=== PATIENT | female | born 1980 | race Caucasian/White ===

== ENCOUNTER → 2018-03-06 | Outpatient (CLI) | payer BC ==
[~2018-03-06] MED LIST: DOCO100C2 PO; MULT-1335 PO; PREN-127 PO
[2018-03-06 10:31] LABS: PLATELET COUNT, AUTOMATED 275 K/uL (150-450)
== END ==
LOC: LAB 10:08
PROVIDERS: ATTEND Obstetrics & Gynecology
DX: Z34.01 Encounter for supervision of normal first pregnancy, first trimester (principal); R82.79 Other abnormal findings on microbiological examination of urine
CPT/HCPCS: 36415; 81001; 85025; 86592; 86762; 86850; 86900; 86901; 87088; 87340

== ENCOUNTER → 2018-06-06 | Outpatient (CLI) | payer BC ==
--- NOTE | 2018-06-06 15:37 | RADIOLOGY IMAGING REPORT ---
FACILITY: [facility] - [place] PATIENT NAME: Rosette Her : 1980 MR: [id number] V: [id number] EXAM DATE: ORDERING PHYSICIAN: PENELOPE MORENO TECHNOLOGIST: Location: [facility] [place] Patient: Rosette Her : 1980 Visit/Account:[id number] Date of Sevice: 06/06/2018 [facility] OB ANATOMICAL SURVEY Comparisons: None. HISTORY: Anatomic survey, advanced maternal age. FINDINGS: A single living intrauterine is noted in breech presentation with a heart rate of 138 bpm. Placenta is within normal limits and is anterior. MA fluid volume is appropriate with an AVIS of 13.8. anatomy including the intracranial structures, facial structures, spinal structures, sacrum, fo ur-chamber view the heart, outflow tracts, stomach, kidneys, bladder, three-vessel cord and cord inse rtion have a normal appearance. 4 normal-appearing extremities are noted. Cervix is closed. The adnexal regions are unremarkable. Biometry: BPD: 49 mm corresponding to 20 weeks 6 days. Head circumference: 181 mm corresponding to 20 weeks 4 days Abdominal circumference: 163 mm corresponding to 21 weeks 3 days Femur length: 34 mm corresponding to 20 weeks 5 days Estimated weight: 390 g IMPRESSION: 1. Living single intrauterine at 21 weeks 0 days. 2. Unremarkable survey. Report Dictated By: Bladimir Cronin MD at 06/06/2018 3:29 PM Report E-Signed By: Bladimir Cronin MD at 06/06/2018 3:33 PM WSN:LINDA
== END ==
LOC: RAD 08:07
PROVIDERS: ATTEND Obstetrics & Gynecology
DX: Z02.9 Encounter for administrative examinations, unspecified (principal)

== ENCOUNTER → 2018-06-18 | Outpatient (CLI) | payer BC | LOC: LAB 15:20 | PROVIDERS: ATTEND Student in an Organized Health Care Education/Training Program | DX: Z02.9 Encounter for administrative examinations, unspecified (principal) ==

== ENCOUNTER → 2018-07-30 | Outpatient (CLI) | payer BC ==
[~2018-07-30] MED LIST changes: +DIPH0.5D12 IM; +FLU60VIA41 IM
[2018-07-30 16:53] LABS: PLATELET COUNT, AUTOMATED 264 K/uL (150-450)
== END ==
LOC: LAB 16:14
PROVIDERS: ATTEND Obstetrics & Gynecology
DX: O09.523 Supervision of elderly multigravida, third trimester (principal)
CPT/HCPCS: 36415; 82950; 85025

== ENCOUNTER 2018-10-19 02:45 | Inpatient (IN) | payer BC ==
[~2018-10-19] VITALS: Ht 162.6 cm; Wt 74.4 kg
[2018-10-19] MEDS ORDERED: FAMOTIDINE(*) 20MG/50ML PREMIX 50 ML IVPB PRN (02:47)
[2018-10-19] MEDS ORDERED: ceFAZolin(*) 2GM/D5W 50ML 50 ML IVPB PRN (02:47)
[2018-10-19] MEDS ORDERED: OXYTOCIN 30 UNIT/D5LR 500 ML 500 ML IV PRN (02:47)
[2018-10-19] MEDS ORDERED: fentaNYL CITR 100 MCG/2 ML AMP IVP PRN (02:50)
[2018-10-19] MEDS ORDERED: LIDOCAINE 1% LOCAL 300 MG/30ML INJ PRN (02:50)
[2018-10-19] MEDS ORDERED: LIDOCAINE/SOD BICARB 8.4% SYR SC PRN (02:50)
[2018-10-19] MEDS ORDERED: FLUSH 10 ML SYR IVP PRN (02:50)
[2018-10-19] MEDS ORDERED: METOCLOPRAMIDE 10 MG/2 ML SDV IVP PRN (02:50)
[2018-10-19 03:10] VITALS: BP 144/80
[2018-10-19] MEDS: LR(*) 1000 ML BAG 1,000 ML IV SCH ×3 (03:30→05:40)
[2018-10-19] MEDS ORDERED: FAMOTIDINE 20 MG/50 ML PREMIX IVPB ONE (03:35)
[2018-10-19] MEDS ORDERED: FENTANYL/ROPIVACAINE 100 ML BAG EPI PRN (03:35)
[2018-10-19] MEDS ORDERED: SCOPOLAMINE 1.5 MG PATCH TOP PRN (03:35)
[2018-10-19] MEDS ORDERED: BUPIVACAINE 0.5% INJ 30ML VIAL EPI PRN (03:35)
[2018-10-19] MEDS ORDERED: LIDOCAINE/PF 2% 200MG/10ML AMP 200 MG/10 ML AMPUL EPI PRN (03:35)
[2018-10-19] MEDS ORDERED: LIDO/EPI 2% MPF 1:200,000 20ML EPI PRN (03:35)
[2018-10-19] MEDS ORDERED: ONDANSETRON 4 MG/2 ML VIAL IVP PRN (03:35)
[2018-10-19] MEDS ORDERED: BUPIVACAINE 0.25% MPF INJ EPI PRN (03:35)
[2018-10-19] MEDS ORDERED: METOCLOPRAMIDE 10 MG/2 ML SDV IV PRN (03:35)
[2018-10-19] MEDS ORDERED: diphenhydrAMINE 50 MG/ML VIAL IV PRN (03:35)
[2018-10-19] MEDS ORDERED: fentaNYL CITR 100 MCG/2 ML AMP IT PRN (03:35)
[2018-10-19] MEDS ORDERED: EPIDURAL KEYS XX PRN (03:38)
[2018-10-19 03:49] LABS: PLATELET COUNT, AUTOMATED 200 K/uL (150-450)
--- NOTE | 2018-10-19 04:13 | History & Physical ---
History of Present Illness EDC per LMP: Oct 20, 2018 Estimated Gestational Age: 39.6 Chief Complaint Labor History of Present Illness 37-year-old at 39w6d presents in spontaneous labor. She reports UCx starting at 2200hrs last night. She denies any LOF. No vaginal bleeding. Good movement. No preeclampsia symptoms. PNR reviewed and c/b AMA. GBS negative. care by IMG. History Patient's Blood Type: A Positive Rubella Status: Immune Group B Strep Screen: Negative Obstetrical History: Primip Past Medical History: PMH: Asthma, allergies PSH: Lithotripsy Allergies: Coded Allergies: No Known Drug Allergies (Unverified , 08/07/17) Social History: No T/E/D. . Family History: FH: colon cancer Paternal grandma FH: prostate cancer FATHER Med Rec Home Meds Reported Medications Docosahexanoic Acid (DHA) 100 Mg Capsule, 100 MG PO, CAPSULE 03/06/18 Vits W-Ca,Fe,Fa(<1MG) ( VITAMINS) 1 Each Tablet, 1 EACH PO DAILY, TAB 03/06/18 Review of Systems Constitutional: No Fever Neurological: No Syncope Eyes: No Vision Change Cardiovascular: No Chest Pain Respiratory: No Shortness of Breath Gastrointestinal: No Nausea, No Vomiting, No Diarrhea Genitourinary: No Dysuria Musculoskeletal: No Pain Psychiatric: No Depression, No Anxiety Exam General Exam Vital Signs VS reviewed General Apperance: Alert/Awake/No Acute Distress Neuro: No Gross deficits Eyes: Normal Extraocular Movement & Vison Cardiovascular: Regular Rate and Rhythm Respiratory: No Respiratory Distress, Clear to Auscultation Abdomen: Gravid - Non-Tender : Normal Musculoskeletal: No Weakness/Pain Extremities: No Cyanosis,Clubbing or Edema Integumentary: Skin Intact without Lesions or Rash Psychological: Alert & Oriented X3, Appropriate Mood & Affect Cervical Dialation: 7 Cervical Effacement (%): 80 Cervical Consistency: Soft Cervical Position: Mid Station: -1 Presentation: Vertex Uterine Contractions(Q min): 3 Uterine Contraction Strength: Strong UC Resting Tone: Soft Fetus Feeling Movement?: Yes FHT Category: I Medical Decision Making Data Points Result Diagram: 10/19/18 0328 Assessment and Plan Problems: (1) 39 weeks gestation of Assessment & Plan: 37-year-old at 39w6d presents in spontaneous labor. GBS negative. She is going to get epidural. Anticipate . (2) High-risk , elderly primigravida PENELOPE MORENO MD Oct 19, 2018 04:13
--- NOTE | 2018-10-19 05:43 | Anesthesia OB Pre-Anes Eval ---
History of Present Illness Anesthesia Start Date: Oct 19, 2018 Anesthesia Start Time: 04:05 OB Anesthesia Diagnosis: spontaneous labor Complications: None known EDC: Oct 20, 2018 : 1 Para: 0 Vital Signs: Vital Signs Date Time Temp Pulse Resp B/P (MAP) Pulse Ox O2 Delivery O2 Flow Rate FiO2 10/19/18 03:10 98.7 90 20 144/80 (101) Room Air Pain Ratin Heart Tones: WNL Result Diagram: 10/19/18 0328 Height (Inches): 64.00 Weight (Pounds): 164 BMI (kg/m2): 28 Past Medical History Medical History: no pertinent history Surgical History: other (Knee, Lithotripsy and laser Kidney stone removal) Previous Anesthesia: general Attended Childbirth Classes?: Yes, Attended [employer] [facility] Lecture Hx Anesthesia Reactions: No Hx Family Anesthesia Reaction: No Home Meds Reported Medications Docosahexanoic Acid (DHA) 100 Mg Capsule, 100 MG PO, CAPSULE 03/06/18 Vits W-Ca,Fe,Fa(<1MG) ( VITAMINS) 1 Each Tablet, 1 EACH PO DAILY, TAB 03/06/18 Allergies: Coded Allergies: No Known Drug Allergies (Unverified , 08/07/17) Anesthesia OB ROS Neurological: No migraines/headaches, No seizures, No neuropathy ENT: Denies Tooth caps, Denies Loose teeth, Denies Chipped teeth, Denies Dentures, Denies Bridges, Denies Retainers, Denies Veneers, Denies Implants, Denies Tongue ring Pulmonary: asthma (as a child); No smoker (pks/day/yrs), No other Airway Class: ll Cardiovascular ROS: No edema, No arrhythmia GI ROS: clear liquids Last Solids Date: Oct 18, 2018 Last Solids Time: 21:00 ROS: No Herpes, No STD(s), No Liver Disease, No Renal Disease; Other (HS of kidney stones) Endocrine ROS: No diabetes, No gestational diabetes, No thyroid disorder Musculoskeletal ROS: No low back pain, No low back injury, No scoliosis ASA Classification: 2 Assessment and Plan Anesthesia Plan: CSE Assessment Past Medical, Surgical, Family and Obstetric Histories reviewed. Please see ACOG chart. Epidural anesthesia risks, complications and benefits explained to patient's satisfaction for labor and vaginal delivery and/or section. General anesthesia risks and benefits explained to patient's satisfaction. Questions invited, none asked. AVANI BEAVER CRNA Oct 19, 2018 05:43
--- NOTE | 2018-10-19 06:03 | Procedure Note ---
Anesthetic Placement Note Anesthesia Plan: CSE Permit for Anesthesia Signed: Yes Anesthesia Technique: Patient Sitting Anesthesia Prep: Chlorhexidine Interspace: L 3-4 Local Anesthetic: 1% Lidocaine, 25 Gauge Needle Amount Local - cc's: 2 Anesthesia Needle: 17g Touhy/Schliff Anesthesia Attempts: 1 Loss of Resistance: Air Depth of WANDA (cm): 5 Epidural Needle Placement: No CSF, No Blood, No Parasthesia Intrathecal Needle: 27 Gauge Pencan Cerebral Spinal Fluid: Yes, Clear Catheter Insertion (cm): 5 Catheter Type: Gill - Spring Wound Epidural Dressing: Tegaderm, Tape, Adhesive [place] Anesthesia Tray: Lot Number ([id number]), Expiration Date (2019-09-06), Reference Number ([id number]) Anesthesia Medications: Intrathecal Dose: mcg Fentanyl (15), mg Spinal Bupivicaine (1.75), Time (0415) Epidural Test Dose: 1.5 Lido/Epi (1:200,000), Dose - mL (2), Time (0450), Negative Epidural Loading Dose: 0.2% Ropivicaine, With Fentanyl 2mcg/ml, Dose - ml (5), Time (0455) Epidural Infusion: 0.2% Ropivicaine, With Fentanyl 2mcg/ml, Start Time: (0455) Epidural Pump Setting: Bolus Dose - mL (5), Lockout - Minutes (0), Maintenance Rate - mL/hr (6), Maximum per Hour - mL (21) Complications: None Comment: excellent tolerance of procedure for CSE. Pt. was able to maintain position very well. She became comfortable within minutes after CSE. Mild itching noted. AVANI BEAVER CRNA Oct 19, 2018 06:03
--- NOTE | 2018-10-19 06:04 | Anesthesia Progress Note ---
Progress/Maintenance Anesthesia Note Date: Oct 19, 2018 Anesthesia Note Time: 05:30 Pain Intensity: 0 Pump: On Pump Rate (ML/HR): 6 Sensory Level: T-12 Motor Level: Bending Knees-Bilateral Dilatation: 7 Position: Left, Tilt Assessment and Plan Assessment No further medication has been given. Pt. is attempting to rest. Itching is decreasing. She does not feel contractions. AVANI BEAVER CRNA Oct 19, 2018 06:04
--- NOTE | 2018-10-19 08:05 | Anesthesia Progress Note ---
Progress/Maintenance Anesthesia Note Date: Oct 19, 2018 Anesthesia Note Time: 07:50 Pain Intensity: 0 Pump: On Pump Rate (ML/HR): 4 Sensory Level: T-12 Motor Level: Bending Knees-Bilateral, Other (Left side lower than right) Dilatation: 9 Position: Right, Tilt Assessment and Plan Assessment Remains very comfortable. Offered to decrease epidural rate til pt feels contractions again. Plan to maintain at current rate, per suggestion of Dr. Mcqueen. AVANI BEAVER CRNA Oct 19, 2018 08:05
--- NOTE | 2018-10-19 08:25 | Labor Progress Note ---
Labor Subjective Progress Notes Subjective Pt is now resting with epidural in place. No concerns. Labor Objective Vital Signs Vital Signs Date Time Temp Pulse Resp B/P (MAP) Pulse Ox O2 Delivery O2 Flow Rate FiO2 10/19/18 03:10 98.7 90 20 144/80 (101) Room Air Cervical Dialation: 9 Cervical Effacement (%): 100 Cervical Position: Mid Station: 0 Presentation: Vertex Uterine Contractions(Q min): 3 Uterine Contraction Strength: Strong UC Resting Tone: Soft Fetus FHT Category: I General Exam General Appearance: Alert/Awake/No Acute Distress : Normal Extremities: No Cyanosis,Clubbing or Edema Integumentary: Skin Intact without Lesions or Rash Psychological: Alert & Oriented X3, Appropriate Mood & Affect Other Result Diagram: 10/19/18 0328 Assessment and Plan Problems: (1) 39 weeks gestation of Assessment & Plan: Pt is now 9cm. Will start pushing once complete. Anticipate . (2) High-risk , elderly primigravida PENELOPE MORENO MD Oct 19, 2018 08:25
--- NOTE | 2018-10-19 08:56 | Anesthesia Progress Note ---
Progress/Maintenance Anesthesia Note Date: Oct 19, 2018 Anesthesia Note Time: 08:50 Pain Intensity: 0 Pump: On Pump Rate (ML/HR): 2 Motor Level: Bending Knees-Bilateral Dilatation: 10 Position: Left, Tilt Assessment and Plan Assessment Pt. starting to ppush. Epidural pump rate decreased to 2 ml since pt. does not feel contractions. AVANI BEAVER CRNA Oct 19, 2018 08:56
--- NOTE | 2018-10-19 10:51 | OB Delivery Note ---
Delivery Note Vaginal Delivery Type: Spont. Vaginal Delivery Delivery Date: Oct 19, 2018 Delivery Time: 10:22 Estimated Gestational Age(wks): 39.6 Length of Labor Stage II (hrs): 2 Labor Stage III (minutes): 4 Delivery Anesthesia: Epidural Infant Sex: Male Apgars: 1 Minute (8), 5 Minute (9) Repair Needed: 2nd Degree Estimated Blood Loss: 300 Cutter [place] in Attendence: PENELOPE Lewis MD Oct 19, 2018 10:51
--- NOTE | 2018-10-19 10:53 | Anesthesia Progress Note ---
Progress/Maintenance Anesthesia Note Date: Oct 19, 2018 Anesthesia Note Time: 10:40 Pain Intensity: 0 Pump: Off Sensory Level: T-12 Motor Level: Bending Knees-Bilateral Dilatation: 10 Position: Semi-Fowlers Drug Bolus: 0.5% Marcaine (4 ml), Other (Fentenyl 85 mcgs) Assessment and Plan Assessment Fentenyl 85 mcgs given per epidural with turning pump back to 5 ml/hr at approx. 0945. Marcaine 54 ml given per epidural at 1015. Excellent tolerance of pushing, delivery and repair work. Empty syringe attached to epidural catheter and RN agrees to remove with ambulation. Patient instructed the first ambulation is to be with help of nursing staff. Instructed to preform deep knee bends at bedside before walking. Anesthesia Stop Day: Oct 19, 2018 Anesthesia Stop Time: 10:30 AVANI BEAVER CRNA Oct 19, 2018 10:53
[2018-10-19] MEDS ORDERED: ACETAMINOPHEN 325 MG TAB PO PRN (10:55)
[2018-10-19] MEDS ORDERED: MAGNESIUM HYDROXIDE* 30ML UDCP PO PRN (10:55)
[2018-10-19] MEDS ORDERED: GLYCERIN/WITCH HAZEL LEAF 1 PK TP PRN (10:55)
[2018-10-19] MEDS ORDERED: APAP/HYDROCODONE 325/5 TAB PO PRN (10:55)
[2018-10-19] MEDS ORDERED: HYDROCORTISONE 2.5% CR 30GM TB PR PRN (10:55)
[2018-10-19] MEDS ORDERED: BENZOCAINE 20% 60 ML BTL TP PRN (10:55)
[2018-10-19] MEDS ORDERED: LANOLIN OINT 7 GM TUBE TP PRN (10:55)
--- NOTE | 2018-10-19 11:46 | DELIVERY NOTE ---
DELIVERY DATE: October 19, 2018 SURGEON: Risa Mcqueen MD ANESTHESIOLOGIST: Lorna Rabago CRNA ANESTHESIA: Epidural PREOPERATIVE DIAGNOSIS Intrauterine at 39 weeks and 6 days in spontaneous active labor. POSTOPERATIVE DIAGNOSIS 1. Intrauterine at 39 weeks and 6 days in spontaneous active labor. 2. Delivery of a viable male at 10:22 hours weighing 6lb 9oz with Apgars of 8 at 1 minute and 9 at 5 minutes. PROCEDURE 1. Spontaneous vaginal delivery. 2. Repair of second degree laceration. ESTIMATED BLOOD LOSS 300 cc. INDICATIONS FOR PROCEDURE This patient is a 37-year-old 1, para 0 who presented to labor and delivery in spontaneous active labor. At the time of presentation, she was 7 cm dilated, 80% effaced, and -1 station. She therefore received and Epidural for anesthesia and was allowed to progress on her own. She was noted to be complete at 08:36 hours and was allowed to start pushing. PROCEDURE The patient was properly identified and noted to be in the dorsal lithotomy position and pushing. She was able to bring the infant's vertex to the perineum. The infant was delivered in the direct OA position over an intact perineum. A nuchal cord was noted and delivered through. The anterior shoulder delivered easily, followed by the posterior shoulder. The remainder of the infant was then easily delivered. The did have spontaneous cry and spontaneous movement of all four extremities. The infant was passed to the mother's abdomen in good condition and nursing personnel was in attendance. After 1 minute, the cord was clamped x 2 and cut by the father of the baby. Cord blood was then obtained and passed off the table. Pitocin was started through IV fluid to help firm the uterus. I then gently applied traction to the umbilical cord which avulsed quite easily. Therefore, a manual extraction of the placenta was performed. The entire placenta was removed. The patient tolerated this well. Examination of the cervix, vaginal vault, and perineum revealed a second degree midline laceration which was repaired with a 3-0 Vicryl. Hemostasis was assured. The fundus was firm. The bladder was then drained of approximately 300 cc of clear, yellow urine. The patient tolerated the entire procedure well and recovered in Labor and Delivery with the . All sponge and needle counts were correct at the end of this procedure. [facility]
[2018-10-19] MEDS ORDERED: LR(*) 1000 ML BAG 1,000 ML ONE (12:36)
[2018-10-19 13:07] VITALS: BP 119/57
[2018-10-19] MEDS ORDERED: IBUPROFEN 800 MG TAB PO SCH (14:00)
[2018-10-19 16:58] VITALS: BP 128/59
[2018-10-19 19:38] VITALS: BP 117/58
[2018-10-19] MEDS: DOCUSATE CALCIUM 240 MG CAP PO SCH (20:43)
[2018-10-19] MEDS: IBUPROFEN 800 MG TAB PO SCH (20:43)
[2018-10-20 00:30] VITALS: BP 124/60
[2018-10-20 03:00] VITALS: BP 99/64
[2018-10-20] MEDS: IBUPROFEN 800 MG TAB PO SCH ×2 (04:46→13:41)
--- NOTE | 2018-10-20 08:47 | OB/GYN Progress Note ---
OB Subjective Progress Notes Subjective Doing well. Pain controlled with oral medications. Tolerating regular diet. Ambulating. Voiding. Normal lochia. No preeclampsia symptoms. OB Objective Physical Exam Vital Signs Date Time Temp Pulse Resp B/P (MAP) Pulse Ox O2 Delivery O2 Flow Rate FiO2 10/20/18 03:00 97.7 88 16 99/64 (76) 95 Room Air Intake and Output 10/20/18 06:59 Intake Total 1500 ml Output Total 600 ml Balance 900 ml Intake Oral 0 ml IV Total 1500 ml Output Urine Total 600 ml # Voids 1 General Appearance: Alert/Awake/No Acute Distress Neurological: No Gross deficits Eyes: Normal Extraocular Movement & Vison Cardiovascular: Normal Rhythm & Peripheral Pulses, Regular Rate and Rhythm Respiratory: No Respiratory Distress, Clear to Auscultation Abdomen: Soft, Non-Tender, Non-Distended, Fundus Firm Extremities: No Cyanosis,Clubbing or Edema Integumentary: Skin Intact without Lesions or Rash Psychological: Alert & Oriented X3, Appropriate Mood & Affect Result Diagram: 10/19/18 0328 Assessment and Plan Problems: (1) examination following vaginal delivery Assessment & Plan: PPD#1 s/p . Doing well. She is considering going home today but still working on . Will re-evaluate later. PENELOPE MORENO MD Oct 20, 2018 08:47
[2018-10-20] MEDS ORDERED: IBUP800T37 PO (08:48)
[2018-10-20] MEDS ORDERED: LOR5/325 PO (08:48)
--- NOTE | 2018-10-20 08:50 | OB/GYN Discharge Summary ---
Discharge Summary Reason for Hosp/Final Diag: (1) examination following vaginal delivery Hospital Course & Plan: PPD#1 s/p . Doing well. She is considering going home today but still working on . Will re-evaluate later. If she is doing well, will discharge. [place] Vital Signs Vital Signs Date Time Temp Pulse Resp B/P (MAP) Pulse Ox O2 Delivery O2 Flow Rate FiO2 10/20/18 03:00 97.7 88 16 99/64 (76) 95 Room Air Weight (Pounds): 164 Result Diagram: 10/19/18 0328 Condition: Improved Discharge: Home, Self [facility] Meds Active Scripts Hydrocodone Bit/Acetaminophen (HYDROCODON-ACETAMINOPHEN 5-325) 1 Each Tablet, 0.5-1 TAB PO Q4-6H PRN for pain, #10 TAB 0 Refills Prov:PENELOPE MORENO MD 10/20/18 Reported Medications Docosahexanoic Acid (DHA) 100 Mg Capsule, 100 MG PO, CAPSULE 03/06/18 Vits W-Ca,Fe,Fa(<1MG) ( VITAMINS) 1 Each Tablet, 1 EACH PO DAILY, TAB 03/06/18 Follow up Referrals: [facility] - In Two Weeks @ [facility] with PENELOPE MORENO MD Discharge Diet: As Tolerates Discharge Activity: Pelvic Rest PENELOPE MORENO MD Oct 20, 2018 08:50
[2018-10-20] MEDS ORDERED: INFLUENZA VIRUS VAC 0.5ML SYR IM ONLY ONE (09:00)
[2018-10-20] MEDS ORDERED: MEASLES,MUMP,RUBELLA VAC 0.5ML SUBQ ONE (09:00)
[2018-10-20] MEDS ORDERED: DIPHTH/TETANUS/ACEL. PERTUSSIS IM ONLY ONE (09:00)
[2018-10-20 10:30] VITALS: BP 121/55
[2018-10-20] MEDS: DOCUSATE CALCIUM 240 MG CAP PO SCH (13:41)
== END 2018-10-20 14:07 | disposition home or self-care (01) | DRG 807 ==
LOC: OB 02:45
PROVIDERS: ADMIT Obstetrics & Gynecology; ATTEND Obstetrics & Gynecology
PROC: 10E0XZZ Delivery of Products of Conception, External Approach (ICD-10-PCS; principal; 2018-10-19)
PROC: 0KQM0ZZ Repair Perineum Muscle, Open Approach (ICD-10-PCS; 2018-10-19)
DX: O69.81X0 Labor and delivery complicated by cord around neck, without compression, not applicable or unspecified (principal); Z37.0 Single live birth; Z3A.39 39 weeks gestation of pregnancy; O70.1 Second degree perineal laceration during delivery; Z87.891 Personal history of nicotine dependence
CPT/HCPCS: 85025; 86703; 86850; 86900; 86901; J2405; J3010; J3490; J7120; S0020